=== PATIENT | female | born 1945 | race Two or more races ===

== ENCOUNTER 2022-11-11 11:29 | Emergency (ER) | payer OTHER ==
[~2022-11-11] VITALS: Ht 147.3 cm; Wt 41.7 kg
[2022-11-11] MEDS ORDERED: METOPROLOL SUCC50 MG PO (11:50)
== END 2022-11-11 16:47 | disposition home or self-care (01) ==
LOC: ER 11:29
DX: R07.9 Chest pain, unspecified (principal); Z88.6 Allergy status to analgesic agent; I10 Essential (primary) hypertension

== ENCOUNTER 2024-01-11 12:20 | Emergency (ER) | payer OTHER ==
[~2024-01-11] VITALS: Ht 152.4 cm; Wt 44.5 kg
[~2024-01-11 12:20] MED LIST: METOPROLOL SUCC50 MG PO
[2024-01-11] MEDS ORDERED: SERTRALINE20 MG/1 ML (13:56)
[2024-01-11] MEDS ORDERED: KETOROLAC TROMETHAMINE 60 MG VIAL IM STA (14:56)
[2024-01-11] MEDS ORDERED: KETOROLAC TROMETHAMINE 60 MG VIAL IM ONE (15:11)
[2024-01-11 15:45] LABS: CALCIUM 9.6 mg/dL (8.5-10.1); CREATININE SERUM 0.87 mg/dL (0.55-1.02); GFR 62.81; POTASSIUM 4.3 mEq/L (3.5-5.1)
== END 2024-01-11 17:37 | disposition home or self-care (01) ==
LOC: ER 12:22
PROVIDERS: General Practice
DX: R53.81 Other malaise (principal); M94.0 Chondrocostal junction syndrome [Tietze]; R07.9 Chest pain, unspecified; I10 Essential (primary) hypertension; Z88.0 Allergy status to penicillin
CPT/HCPCS: 36415; 71045; 93005; 96372; 99283; J1885